=== PATIENT | female | born 2000 | race Caucasian/White ===

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

== ENCOUNTER 2020-01-11 14:35 | Emergency (ER) | payer OTHER ==
[~2020-01-11] VITALS: Ht 162.6 cm; Wt 46.4 kg
[2020-01-11] MEDS ORDERED: NS 1,000 ML IV ONE (15:30)
[2020-01-11 16:09] LABS: BASO # 0.1 10^3/uL (0.0-0.2); BASO % 0.7 % (0.0-1.0); EOS # 0.2 10^3/uL (0.0-0.5); EOS % 2.2 % (0.0-3.0); HEMATOCRIT 38.2 % (36.0-47.0); HEMOGLOBIN 12.4 g/dl (12.0-15.5); LYMPH # 1.4 10^3/uL (1.5-5.0); MEAN CORPUSCULAR HEMOGLOBIN 28.9 pg (27.0-33.0); MEAN CORPUSCULAR HGB CONC 32.5 g/dl (32.0-36.5); MONO # 0.5 10^3/uL (0.0-0.8); MONO % 6.9 % (0.0-5.0); NEUTROPHILS # 5.5 10^3/uL (1.5-8.5); NEUTROPHILS % 71.9 % (36.0-66.0); PLATELET COUNT, AUTOMATED 221 10^3/uL (150-450); RED BLOOD COUNT 4.29 10^6/uL (4.00-5.40); WHITE BLOOD COUNT 7.6 10^3/uL (4.0-10.0)
[2020-01-11] MEDS ORDERED: ACETAMINOPHEN 500 MG TAB PO ONE (16:15)
[2020-01-11] MEDS ORDERED: METOCLOPRAMIDE INJ 10MG/2ML VIAL (J2765 PER 1) IV ONE (16:15)
[2020-01-11 16:34] LABS: HCG, SERUM QUALITATIVE NEGATIVE (NEGATIVE)
[2020-01-11 16:36] LABS: ALBUMIN 3.6 GM/DL (3.2-5.2); ALT/SGPT 19 U/L (12-78); BILIRUBIN,DIRECT 0.1 MG/DL (0.0-0.2); BILIRUBIN,TOTAL 0.6 MG/DL (0.2-1.0); BLOOD UREA NITROGEN 17 MG/DL (7-18); CALCIUM LEVEL 8.8 MG/DL (8.5-10.1); CARBON DIOXIDE LEVEL 29 MEQ/L (21-32); CHLORIDE LEVEL 107 MEQ/L (98-107); CREATININE FOR GFR 0.76 MG/DL (0.55-1.30); GLUCOSE, FASTING 79 MG/DL (70-100); LIPASE 102 U/L (73-393); POTASSIUM SERUM 3.8 MEQ/L (3.5-5.1); SODIUM LEVEL 141 MEQ/L (136-145); TOTAL PROTEIN 6.5 GM/DL (6.4-8.2)
--- NOTE | 2020-01-11 17:02 | REP ---
INDICATION: severe migraine whole head x 2 weeks. COMPARISON: 12/23/2018, 08/16/2017 TECHNIQUE: CT BRAIN PERFORMED IN THE AXIAL PLANE. CORONAL RECONSTRUCTION IMAGES ARE PERFORMED. FINDINGS: THE VENTRICLES ARE NORMAL IN SIZE AND POSITION. THERE IS NO MIDLINE SHIFT OR MASS EFFECT. LICEA-WHITE DIFFERENTIATION IS WELL MAINTAINED. THERE IS NO ACUTE INTRACRANIAL HEMORRHAGE OR EXTRA-AXIAL FLUID COLLECTION. BONE WINDOW EXAMINATION IS UNREMARKABLE. VISUALIZED MASTOID AIR CELLS AND PARANASAL SINUSES ARE CLEAR. IMPRESSION: NEGATIVE NONCONTRAST CT BRAIN. <Electronically signed by Jose Luis Jacobs > 01/11/20 [id number]
[2020-01-11 18:00] VITALS: BP 111/63
--- NOTE | 2020-01-11 19:03 | ECGEPIP ---
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
== END 2020-01-11 18:10 | disposition home or self-care (01) ==
LOC: M ED 14:35
DX: R51.9 Headache, unspecified (principal); J45.909 Unspecified asthma, uncomplicated; F32.9 Major depressive disorder, single episode, unspecified; F17.210 Nicotine dependence, cigarettes, uncomplicated; Z88.0 Allergy status to penicillin; Z88.1 Allergy status to other antibiotic agents; Z88.8 Allergy status to other drugs, medicaments and biological substances; Z88.6 Allergy status to analgesic agent; Z87.828 Personal history of other (healed) physical injury and trauma
CPT/HCPCS: 70450; 80048; 80076; 83690; 84703; 85025; 93005; 96361; 96374; 99284; J2765

== ENCOUNTER → 2020-05-16 | Outpatient (REF) | payer OTHER ==
[~2020-05-16] MED LIST changes: -MONT5CHW; +MONT5CHW8
[2020-05-17 10:31] LABS: HEMATOCRIT 41.6 % (36.0-47.0); HEMOGLOBIN 13.1 g/dl (12.0-15.5); MEAN CORPUSCULAR HEMOGLOBIN 28.7 pg (27.0-33.0); MEAN CORPUSCULAR HGB CONC 31.5 g/dl (32.0-36.5); PLATELET COUNT, AUTOMATED 246 10^3/uL (150-450); RED BLOOD COUNT 4.57 10^6/uL (4.00-5.40); WHITE BLOOD COUNT 4.6 10^3/uL (4.0-10.0)
[2020-05-17 11:00] LABS: HEMOGLOBIN A1c 4.6 %
[2020-05-17 11:13] LABS: FREE T4 0.89 NG/DL (0.78-1.33)
[2020-05-17 11:14] LABS: PROLACTIN 18.4 NG/ML
[2020-05-17 11:18] LABS: HCG, SERUM QUALITATIVE NEGATIVE (NEGATIVE)
== END ==
LOC: M PLALAB 14:21
PROVIDERS: ATTEND Advanced Practice Midwife
DX: N92.1 Excessive and frequent menstruation with irregular cycle (principal); N91.2 Amenorrhea, unspecified; R31.0 Gross hematuria

== ENCOUNTER → 2020-05-22 | Outpatient (REF) | payer OTHER ==
[2020-05-22 15:43] LABS: APPEARANCE, URINE TURBID (CLEAR); BACTERIA, URINE AUTO 1+ (NEGATIVE); BILIRUBIN, URINE AUTO NEGATIVE (NEGATIVE); BLOOD, URINE BLOOD 3+ (NEGATIVE); COLOR, URINE YELLOW (YELLOW); GLUCOSE, URINE (UA) AUTO NEGATIVE (NEGATIVE); KETONE, URINE AUTO NEGATIVE (NEGATIVE); LEUKOCYTE ESTERASE, URINE AUTO 3+ (NEGATIVE); MUCUS, URINE SMALL (NEGATIVE); NITRITE, URINE AUTO NEGATIVE (NEGATIVE); PROTEIN, URINE AUTO 2+ mg/dL (NEGATIVE); RBC, URINE AUTO 125 /HPF (0-3); SPECIFIC GRAVITY URINE AUTO 1.019 (1.002-1.035); SQUAMOUS EPITHELIAL CELL UR AU 0 /HPF (0-6); UROBILINOGEN, URINE AUTO 0.2 mg/dL (0.0-2.0); WBC, URINE AUTO TNTC /HPF (0-3)
== END ==
LOC: M SFHCWAGY 15:24
PROVIDERS: ATTEND Advanced Practice Midwife
DX: N92.1 Excessive and frequent menstruation with irregular cycle (principal); R31.0 Gross hematuria

== ENCOUNTER → 2020-05-31 | Outpatient (CLI) | payer OTHER ==
--- NOTE | 2020-05-31 14:48 | REP ---
INDICATION: N92.1 MENORRHAGIA WITH IRREGULAR CYCLE. COMPARISON: 07/23/2017. TECHNIQUE: Multiple sonographic images of the pelvis with transabdominal and Doppler ultrasound evaluation. The patient declined endovaginal ultrasound. FINDINGS: The bladder is suboptimally distended containing only 28 mL of fluid. The uterus is retroverted and normal size measuring 8.0 x 4.5 x 5.7 cm. The endometrium is upper normal thickness measuring up to 14 mm. The right ovary measures 2.9 x 2.4 x 2.8 cm. The left ovary measures 3.1 x 2.2 x 3.1 cm. The ovaries are normal size. There is no dominant mass or cyst in either the right or the left ovary. There is vascular flow in the left ovary with the Doppler resistive index in the parenchymal arteries measuring 0.37. There is no Doppler assessment of the right ovary, the study is technically difficult. The entire examination is technically difficult because of a nondistended bladder, interfering bowel gas and no endovaginal imaging. IMPRESSION: Retroverted uterus. Endometrium upper normal thickness. Right and left ovaries normal size. No dominant ovarian masses or cysts. Vascular flow in the left ovary. No Doppler assessment of the right ovary could be performed because of technical difficulties with the study. <Electronically signed by Perry Joy > 05/31/20 [id number]
== END ==
LOC: M WHC 11:57
PROVIDERS: ATTEND Advanced Practice Midwife
DX: N92.1 Excessive and frequent menstruation with irregular cycle (principal); N85.4 Malposition of uterus

== ENCOUNTER → 2020-07-03 | Outpatient (REF) | payer OTHER | LOC: M SFHCWAGY 12:47 | PROVIDERS: ATTEND Advanced Practice Midwife | DX: R31.0 Gross hematuria (principal) ==

== ENCOUNTER → 2020-11-26 | Outpatient (REF) | payer OTHER ==
[~2020-11-26] MED LIST changes: -DOXY100C37 PO; +DOXY1CAP62 PO
[2020-11-26 19:09] LABS: APPEARANCE, URINE HAZY (CLEAR); BACTERIA, URINE AUTO 1+ (NEGATIVE); BILIRUBIN, URINE AUTO NEGATIVE (NEGATIVE); BLOOD, URINE BLOOD 2+ (NEGATIVE); COLOR, URINE YELLOW (YELLOW); GLUCOSE, URINE (UA) AUTO NEGATIVE (NEGATIVE); KETONE, URINE AUTO TRACE mg/dL (NEGATIVE); LEUKOCYTE ESTERASE, URINE AUTO 1+ (NEGATIVE); MUCUS, URINE SMALL (NEGATIVE); NITRITE, URINE AUTO NEGATIVE (NEGATIVE); PROTEIN, URINE AUTO 2+ mg/dL (NEGATIVE); RBC, URINE AUTO 31 /HPF (0-3); SQUAMOUS EPITHELIAL CELL UR AU 3 /HPF (0-6); TRANSITIONAL EPITHELIAL AUTO 2 /HPF; UROBILINOGEN, URINE AUTO 0.2 mg/dL (0.0-2.0); WBC, URINE AUTO 66 /HPF (0-3)
== END ==
LOC: M LAB REF 17:11
PROVIDERS: ATTEND Physician Assistant Medical
DX: R30.0 Dysuria (principal)

== ENCOUNTER 2021-02-04 10:00 | Emergency (ER) | payer OTHER ==
[~2021-02-04] VITALS: Ht 162.6 cm; Wt 43.1 kg
[2021-02-04 10:00] VITALS: BP 113/59
[~2021-02-04 10:00] MED LIST changes: +DOXY-443 PO; -DOXY1CAP62 PO
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
== END 2021-02-04 15:50 | disposition left against medical advice (07) ==
LOC: M ED 10:00
DX: Z53.29 Procedure and treatment not carried out because of patient's decision for other reasons (principal)

== ENCOUNTER → 2021-07-21 | Outpatient (CLI) | payer OTHER ==
[~2021-07-21] MED LIST changes: -AFRI0.058; -MONT5CHW8; +MONT5CHW9; +OXYM15SP2
== END ==
LOC: M WUC 14:39
PROVIDERS: ATTEND Nurse Practitioner Family
DX: J45.909 Unspecified asthma, uncomplicated (principal)

== ENCOUNTER → 2022-03-20 | Outpatient (CLI) | payer OTHER ==
[~2022-03-20] MED LIST changes: +ALBU2.5V10 NEB; -ALBU83IN NEB; +MONT5CHW10; -MONT5CHW9
== END ==
LOC: M PLALAB 15:54
PROVIDERS: ATTEND Specialist
DX: Z34.82 Encounter for supervision of other normal pregnancy, second trimester (principal); Z3A.00 Weeks of gestation of pregnancy not specified

== ENCOUNTER → 2022-05-07 | Outpatient (CLI) | payer OTHER | LOC: M WHC 14:54 | PROVIDERS: ATTEND Specialist | DX: Z34.82 Encounter for supervision of other normal pregnancy, second trimester (principal); Z3A.20 20 weeks gestation of pregnancy ==

== ENCOUNTER → 2022-05-08 | Outpatient (CLI) | payer OTHER ==
[2022-05-08 17:08] LABS: HEMATOCRIT 33.5 % (36.0-47.0); MEAN CORPUSCULAR HEMOGLOBIN 27.8 pg (27.0-33.0); MEAN CORPUSCULAR HGB CONC 32.8 g/dl (32.0-36.5); MEAN CORPUSCULAR VOLUME 84.8 fl (80.0-96.0); PLATELET COUNT, AUTOMATED 220 10^3/uL (150-450); RED BLOOD COUNT 3.95 10^6/uL (4.00-5.40); WHITE BLOOD COUNT 9.9 10^3/uL (4.0-10.0)
[2022-05-08 17:53] LABS: HIV 1&2 SCREEN CENTAUR NEGATIVE (NEGATIVE)
[2022-05-08 19:03] LABS: GC DNA AMPLIFICATION NEGATIVE (NEGATIVE)
== END ==
LOC: M PLALAB 16:11
PROVIDERS: ATTEND Obstetrics & Gynecology
DX: Z34.91 Encounter for supervision of normal pregnancy, unspecified, first trimester (principal)

== ENCOUNTER 2022-06-10 08:59 | Emergency (ER) | payer OTHER ==
[~2022-06-10] VITALS: Ht 162.6 cm; Wt 55.0 kg
[2022-06-10 08:59] VITALS: BP 115/63
[2022-06-10] MEDS ORDERED: PRENTAB9 PO (09:40)
[2022-06-16] MEDS ORDERED: ACET500P3 PO (08:13)
[2022-06-16] MEDS ORDERED: ACET-897 PO (08:22)
== END 2022-06-10 11:15 | disposition admitted as inpatient to this hospital (09) ==
LOC: M ED 08:59
DX: Z53.21 Procedure and treatment not carried out due to patient leaving prior to being seen by health care provider (principal)

== ENCOUNTER 2022-06-10 09:15 | Outpatient (CLI) | payer OTHER ==
[~2022-06-10] VITALS: Ht 162.6 cm; Wt 55.1 kg
[2022-06-10 09:32] VITALS: BP 118/64
[2022-06-10] MEDS ORDERED: PRENTAB9 PO (09:40)
[2022-06-10] MEDS ORDERED: HOME MED LIST COMPLETE! XX SCH (09:45)
[2022-06-10 10:43] LABS: HEMOGLOBIN 10.6 g/dl (12.0-15.5); MEAN CORPUSCULAR HEMOGLOBIN 27.8 pg (27.0-33.0); MEAN CORPUSCULAR HGB CONC 33.1 g/dl (32.0-36.5); PLATELET COUNT, AUTOMATED 218 10^3/uL (150-450); RED BLOOD COUNT 3.81 10^6/uL (4.00-5.40); WHITE BLOOD COUNT 9.7 10^3/uL (4.0-10.0)
[2022-06-10 11:07] LABS: ALBUMIN 2.5 G/DL (3.2-5.2); ALKALINE PHOSPHATASE 65 U/L (46-116); ALT/SGPT 23 U/L (7.0-40); AST/SGOT 24 U/L (<34); BILIRUBIN,TOTAL 0.5 MG/DL (0.3-1.2); BLOOD UREA NITROGEN 11 MG/DL (9-23); CALCIUM LEVEL 7.8 MG/DL (8.5-10.1); CARBON DIOXIDE LEVEL 23 MMOL/L (20-31); CHLORIDE LEVEL 109 MMOL/L (98-107); CREATININE FOR GFR 0.44 MG/DL (0.55-1.30); GLOMERULAR FILTRATION RATE > 60.0 (>60); GLUCOSE, FASTING 72 MG/DL (60-100); POTASSIUM SERUM 3.5 MMOL/L (3.5-5.1); SODIUM LEVEL 138 MMOL/L (136-145); TOTAL PROTEIN 5.3 G/DL (5.7-8.2)
[2022-06-10 11:18] VITALS: BP 114/59
[2022-06-10] MEDS ORDERED: ACETAMINOPHEN 500 MG TAB PO ONE (12:45)
[2022-06-16] MEDS ORDERED: ACET500P3 PO (08:13)
[2022-06-16] MEDS ORDERED: ACET-897 PO (08:22)
== END 2022-06-10 14:50 | disposition home or self-care (01) ==
LOC: M LDO 09:15
PROVIDERS: ATTEND Advanced Practice Midwife
DX: O26.892 Other specified pregnancy related conditions, second trimester (principal); R42 Dizziness and giddiness; R51.9 Headache, unspecified; Z3A.25 25 weeks gestation of pregnancy
CPT/HCPCS: 36415; 59025; 80053; 85027; G0463

== ENCOUNTER → 2022-06-12 | Outpatient (REF) | payer OTHER ==
[~2022-06-12] MED LIST changes: +ACET-897 PO; +ACET500P3 PO; +PRENTAB9 PO
[2022-06-12 20:59] LABS: GC DNA AMPLIFICATION NEGATIVE (NEGATIVE)
== END ==
LOC: M SFHCWAGY 16:50
PROVIDERS: ATTEND Obstetrics & Gynecology
DX: Z34.92 Encounter for supervision of normal pregnancy, unspecified, second trimester (principal)

== ENCOUNTER → 2022-06-19 | Outpatient (CLI) | payer OTHER | LOC: M PLALAB 11:20 | PROVIDERS: ATTEND Obstetrics & Gynecology | DX: Z34.92 Encounter for supervision of normal pregnancy, unspecified, second trimester (principal); Z3A.00 Weeks of gestation of pregnancy not specified ==

== ENCOUNTER 2022-07-26 12:23 | Emergency (ER) | payer OTHER ==
[~2022-07-26] VITALS: Ht 162.6 cm; Wt 85.3 kg
[2022-07-26] MEDS ORDERED: predniSONE 20 MG TAB PO ONE (15:20)
[2022-07-26] MEDS ORDERED: PRED10TA2 PO (15:48)
[2022-07-26 15:55] VITALS: BP 109/67
== END 2022-07-26 15:55 | disposition home or self-care (01) ==
LOC: M ED 12:23
DX: O99.513 Diseases of the respiratory system complicating pregnancy, third trimester (principal); Z3A.31 31 weeks gestation of pregnancy; J02.9 Acute pharyngitis, unspecified; J45.909 Unspecified asthma, uncomplicated; R51.9 Headache, unspecified; Z87.891 Personal history of nicotine dependence
CPT/HCPCS: 87880; 99283; J7512

== ENCOUNTER → 2022-08-21 | Outpatient (REF) | payer OTHER ==
[~2022-08-21] MED LIST changes: +PRED10TA2 PO
== END ==
LOC: M SFHCWAGY 13:07
PROVIDERS: ATTEND Specialist
DX: Z34.83 Encounter for supervision of other normal pregnancy, third trimester (principal)

== ENCOUNTER 2022-09-21 11:49 | Inpatient (IN) | payer OTHER ==
[~2022-09-21] VITALS: Ht 162.6 cm; Wt 62.6 kg
[2022-09-21] VITALS (23 sets, daily range): BP systolic 112–145; BP diastolic 61–92
[~2022-09-21 11:49] MED LIST changes: +* PENDING VANCOMYCIN ENTRY XX SCH
[2022-09-21] MEDS ORDERED: ACET325C5 PO (13:04)
[2022-09-21] MEDS ORDERED: PRENTAB9 PO (13:04)
[2022-09-21] MEDS ORDERED: ACET500P3 PO (13:04)
[2022-09-21] MEDS ORDERED: LACTATED RINGER'S 1000 ML IV STA (13:08)
[2022-09-21] MEDS ORDERED: METHYLERGONOVINE MALEATE 0.2MG/ML 1ML VIAL IM PRN (13:10)
[2022-09-21] MEDS ORDERED: OXYTOCIN INJ 10UNITS/ML 1ML VIAL IM PRN (13:10)
[2022-09-21] MEDS ORDERED: TRANEXAMIC ACID INJection 1,000 MG in NS 100 ML IV PRN (13:10)
[2022-09-21] MEDS ORDERED: VANCOMYCIN HCL 1,000 MG, VIAL MATE ADAPTER 1 EACH in NS 250 ML IV SCH (13:10)
[2022-09-21] MEDS ORDERED: CARBOPROST TROMETHAMINE 250 MCG/ML AMP IM PRN (13:10)
[2022-09-21] MEDS ORDERED: OXYTOCIN DRIP 30 UNITS in IV 1 EA IV PRN (13:10)
[2022-09-21] MEDS ORDERED: LIDOCAINE 1% MDV 20ML VIAL INFIL PRN (13:10)
[2022-09-21 13:12] LABS: HEMATOCRIT 34.6 % (36.0-47.0); HEMOGLOBIN 11.5 g/dl (12.0-15.5); MEAN CORPUSCULAR HEMOGLOBIN 27.2 pg (27.0-33.0); MEAN CORPUSCULAR HGB CONC 33.2 g/dl (32.0-36.5); MEAN CORPUSCULAR VOLUME 81.8 fl (80.0-96.0); PLATELET COUNT, AUTOMATED 183 10^3/uL (150-450); RED BLOOD COUNT 4.23 10^6/uL (4.00-5.40); WHITE BLOOD COUNT 8.7 10^3/uL (4.0-10.0)
[2022-09-21] MEDS: miSOPROStol 50MCG 1/2 TABLET PO SCH ×3 (14:49→23:00)
[2022-09-21] MEDS ORDERED: EPIDURAL/PCA KEYS XX PRN (22:40)
[2022-09-21] MEDS ORDERED: ONDANSETRON 4MG 2ML VIAL IV PRN (22:40)
[2022-09-21] MEDS ORDERED: FENTANYL/ROPIVACAINE/NACL BAG 100 ML EPIDURAL SCH (22:40)
[2022-09-21] MEDS ORDERED: NALOXONE INJ 0.4MG/1ML VIAL IV PRN (22:40)
[2022-09-21] MEDS ORDERED: LR 500 ML IV PRN (22:40)
[2022-09-21] MEDS ORDERED: diphenhydrAMINE 50MG/ML VIAL IV PRN (22:40)
[2022-09-21] MEDS ORDERED: ePHEDrine SULFATE 25 MG/5 ML(5MG/ML) SYRINGE IVP PRN (22:40)
[2022-09-21] MEDS ORDERED: VANCOMYCIN HCL 1,000 MG, VIAL MATE ADAPTER 1 EACH in D5W 250 ML IV SCH (23:00)
[2022-09-22] VITALS (19 sets, daily range): BP systolic 107–146; BP diastolic 58–89; O2SAT 96–97
[2022-09-22] MEDS: miSOPROStol 50MCG 1/2 TABLET PO SCH (03:00)
[2022-09-22] MEDS ORDERED: MOM 30ML SUSPENSION UDC PO PRN (08:30)
[2022-09-22] MEDS ORDERED: RHOGAM 300MCG (1500IU) INJ IM SCH (08:30)
[2022-09-22] MEDS ORDERED: DIBUCAINE 1% OINTMENT 30GM TOP PRN (08:30)
[2022-09-22] MEDS ORDERED: DOCUSATE SODIUM 100MG CAPSULE PO PRN (08:30)
[2022-09-22] MEDS ORDERED: ANUSOL HC CREAM 30GM TOP PRN (08:30)
[2022-09-22] MEDS ORDERED: METHYLERGONOVINE MALEATE 0.2 MG TAB PO PRN (08:30)
[2022-09-22] MEDS: PRENATAL VITAMINS CHEWABLE TABLET PO SCH (09:46)
[2022-09-22] MEDS: ACETAMINOPHEN 500 MG TAB PO PRN (09:46)
[2022-09-23] MEDS ORDERED: PILL CUTTER 1 EACH XX PRN (02:50)
[2022-09-23] MEDS: ACETAMINOPHEN 500 MG TAB PO PRN (03:34)
[2022-09-23 06:00] VITALS: BP 108/62; O2SAT 99
[2022-09-23] MEDS: PRENATAL VITAMINS CHEWABLE TABLET PO SCH (08:30)
[2022-09-23] MEDS: ACETAMINOPHEN TAB 650MG DOSE (2X325MG) PO PRN ×2 (11:50→19:22)
[2022-09-23 18:00] VITALS: BP 115/55; O2SAT 99
[2022-09-24] MEDS: ACETAMINOPHEN 500 MG TAB PO PRN (02:10)
[2022-09-24 06:00] VITALS: BP 109/60; O2SAT 96
[2022-09-24] MEDS ORDERED: MEASLES,MUMPS,RUBELLA VACCINE INJ (MMR-II) SC.IMMUN ONE (09:00)
== END 2022-09-24 12:10 | disposition home or self-care (01) | DRG 560 ==
LOC: M LDI 11:49 → EEVIPCON 11:49 → M OBS 09-22 06:19
PROVIDERS: ADMIT Advanced Practice Midwife; ATTEND Advanced Practice Midwife
PROC: 3E0P7GC Introduction of Other Therapeutic Substance into Female Reproductive, Via Natural or Artificial Opening (ICD-10-PCS; 2022-09-21)
PROC: 10E0XZZ Delivery of Products of Conception, External Approach (ICD-10-PCS; principal; 2022-09-22)
PROC: 0HQ9XZZ Repair Perineum Skin, External Approach (ICD-10-PCS; 2022-09-22)
DX: O99.52 Diseases of the respiratory system complicating childbirth (principal); J45.40 Moderate persistent asthma, uncomplicated; Z3A.40 40 weeks gestation of pregnancy; Z37.0 Single live birth; O70.0 First degree perineal laceration during delivery; O99.824 Streptococcus B carrier state complicating childbirth

== ENCOUNTER 2022-12-05 12:41 | Emergency (ER) | payer MEDICAID, OTHER ==
[~2022-12-05] VITALS: Ht 162.6 cm; Wt 51.3 kg
[~2022-12-05 12:41] MED LIST changes: -* PENDING VANCOMYCIN ENTRY XX SCH; +ACET325C5 PO
[2022-12-05 13:38] LABS: BASO # 0.1 10^3/uL (0.0-0.2); EOS # 0.2 10^3/uL (0.0-0.5); HEMOGLOBIN 13.1 g/dl (12.0-15.5); LYMPH # 1.6 10^3/uL (1.5-5.0); LYMPH % 29.7 % (24.0-44.0); MEAN CORPUSCULAR HEMOGLOBIN 27.7 pg (27.0-33.0); MEAN CORPUSCULAR HGB CONC 33.6 g/dl (32.0-36.5); MEAN CORPUSCULAR VOLUME 82.5 fl (80.0-96.0); MONO # 0.5 10^3/uL (0.0-0.8); MONO % 9.6 % (2.0-8.0); NEUTROPHILS # 2.9 10^3/uL (1.5-8.5); NEUTROPHILS % 55.3 % (36.0-66.0); PLATELET COUNT, AUTOMATED 263 10^3/uL (150-450); RED BLOOD COUNT 4.73 10^6/uL (4.00-5.40); WHITE BLOOD COUNT 5.2 10^3/uL (4.0-10.0)
[2022-12-05 14:15] LABS: BLOOD UREA NITROGEN 15 MG/DL (9-23); CARBON DIOXIDE LEVEL 24 MMOL/L (20-31); CHLORIDE LEVEL 110 MMOL/L (98-107); CREATININE FOR GFR 0.71 MG/DL (0.55-1.30); GLOMERULAR FILTRATION RATE > 60.0 (>60); GLUCOSE, FASTING 82 MG/DL (60-100); SODIUM LEVEL 142 MMOL/L (136-145)
[2022-12-05 14:54] LABS: HCG, SERUM QUANTITATIVE < 2.6 MIU/ML (<4.2)
[2022-12-05] MEDS ORDERED: NS 1,000 ML IV ONE (15:50)
[2022-12-05] MEDS ORDERED: ONDA4TAB6 PO (17:02)
[2022-12-05] MEDS ORDERED: ACET-716 PO (17:02)
[2022-12-05 17:28] VITALS: BP 103/63; TEMP 98.5; O2SAT 100
[2022-12-09] MEDS ORDERED: ALBU6.7H6 INH (11:16)
== END 2022-12-05 17:29 | disposition home or self-care (01) ==
LOC: M ED 12:41
DX: O72.2 Delayed and secondary postpartum hemorrhage (principal); D89.2 Hypergammaglobulinemia, unspecified; Z88.0 Allergy status to penicillin; Z88.6 Allergy status to analgesic agent; Z88.8 Allergy status to other drugs, medicaments and biological substances
CPT/HCPCS: 71045; 76830; 76856; 80048; 84702; 85025; 85379; 86850; 86900; 86901; 93005; 93976; 96360; 99284; S0191

== ENCOUNTER → 2023-02-15 | Outpatient (CLI) | payer MEDICAID, OTHER ==
[~2023-02-15] MED LIST changes: +ACET-716 PO; +ALBU6.7H6 INH; +MIDOTAB PO; +ONDA4TAB6 PO
== END ==
LOC: M RAD 13:31
PROVIDERS: ATTEND Obstetrics & Gynecology
DX: N93.9 Abnormal uterine and vaginal bleeding, unspecified (principal)

== ENCOUNTER → 2023-04-20 | Outpatient (CLI) | payer OTHER ==
[2023-04-20 13:34] LABS: HEMATOCRIT 41.8 % (36.0-47.0); HEMOGLOBIN 13.7 g/dl (12.0-15.5); MEAN CORPUSCULAR HEMOGLOBIN 27.7 pg (27.0-33.0); MEAN CORPUSCULAR HGB CONC 32.8 g/dl (32.0-36.5); MEAN CORPUSCULAR VOLUME 84.6 fl (80.0-96.0); PLATELET COUNT, AUTOMATED 239 10^3/uL (150-450); RED BLOOD COUNT 4.94 10^6/uL (4.00-5.40); WHITE BLOOD COUNT 4.8 10^3/uL (4.0-10.0)
[2023-04-20 13:44] LABS: HCG, SERUM QUANTITATIVE < 2.6 MIU/ML (<4.2)
[2023-04-20 13:49] LABS: FOLLICLE STIMULATING HORMONE 5.5 mIU/ML; LUTEINIZING HORMONE 6.2 mIU/ML; PROLACTIN 23.69 NG/ML; PROTHROMBIN TIME 12.9 SECONDS (12.5-14.5)
[2023-04-20 13:50] LABS: ESTRADIOL 44.1 PG/ML; FREE T4 0.92 NG/DL (0.89-1.76); PARTIAL THROMBOPLASTIN TIME 30.8 SECONDS (24.8-34.2)
== END ==
LOC: M PLALAB 09:58
PROVIDERS: ATTEND Obstetrics & Gynecology
DX: N93.9 Abnormal uterine and vaginal bleeding, unspecified (principal)

== ENCOUNTER → 2023-06-02 | Outpatient (REF) | payer OTHER | LOC: M PLALAB 14:00 | PROVIDERS: ATTEND Advanced Practice Midwife | DX: Z12.4 Encounter for screening for malignant neoplasm of cervix (principal); R87.618 Other abnormal cytological findings on specimens from cervix uteri ==

== ENCOUNTER → 2023-06-02 | Outpatient (CLI) | payer OTHER ==
[2023-06-02 18:19] LABS: ALBUMIN 3.9 G/DL (3.2-5.2); ALKALINE PHOSPHATASE 102 U/L (46-116); ALT/SGPT 16 U/L (7.0-40); AST/SGOT 15 U/L (<34); BILIRUBIN,TOTAL 0.5 MG/DL (0.3-1.2); BLOOD UREA NITROGEN 14 MG/DL (9-23); CALCIUM LEVEL 9.3 MG/DL (8.5-10.1); CARBON DIOXIDE LEVEL 28 MMOL/L (20-31); CHLORIDE LEVEL 106 MMOL/L (98-107); CREATININE FOR GFR 0.62 MG/DL (0.55-1.30); GLOMERULAR FILTRATION RATE > 60.0 (>60); GLUCOSE, FASTING 83 MG/DL (60-100); POTASSIUM SERUM 3.8 MMOL/L (3.5-5.1); SODIUM LEVEL 137 MMOL/L (136-145); TOTAL PROTEIN 6.8 G/DL (5.7-8.2)
== END ==
LOC: M PLALAB 15:50
PROVIDERS: ATTEND Advanced Practice Midwife
DX: Z01.419 Encounter for gynecological examination (general) (routine) without abnormal findings (principal); R23.3 Spontaneous ecchymoses

== ENCOUNTER → 2023-09-21 | Outpatient (CLI) | payer OTHER ==
[~2023-09-21] MED LIST changes: +DOXY-323 PO; -DOXY-443 PO; +FLUO-365; -FLUO20CA22; +ONDA-282 PO; -ONDA4TAB6 PO
[2023-09-21 10:37] LABS: BASO % 0.9 % (0.0-1.0); EOS # 0.3 10^3/uL (0.0-0.5); EOS % 7.9 % (0.0-3.0); HEMATOCRIT 40.9 % (36.0-47.0); HEMOGLOBIN 13.7 g/dl (12.0-15.5); LYMPH # 1.3 10^3/uL (1.5-5.0); LYMPH % 29.7 % (24.0-44.0); MEAN CORPUSCULAR HEMOGLOBIN 29.1 pg (27.0-33.0); MEAN CORPUSCULAR HGB CONC 33.5 g/dl (32.0-36.5); MEAN CORPUSCULAR VOLUME 86.8 fl (80.0-96.0); MONO # 0.4 10^3/uL (0.0-0.8); MONO % 9.3 % (2.0-8.0); NEUTROPHILS # 2.2 10^3/uL (1.5-8.5); PLATELET COUNT, AUTOMATED 226 10^3/uL (150-450); RED BLOOD COUNT 4.71 10^6/uL (4.00-5.40); WHITE BLOOD COUNT 4.3 10^3/uL (4.0-10.0)
[2023-09-21 10:41] LABS: COLLAGEN EPINEPHRINE 106 SECONDS (74-162)
[2023-09-21 10:42] LABS: C REACTIVE PROTEIN QUANTITATIV < 0.40 MG/DL (<1.0)
[2023-09-21 10:43] LABS: IMMUNOGLOBULIN A 202.6 MG/DL (40-350); IMMUNOGLOBULIN G 917 MG/DL (650-1600)
[2023-09-21 10:46] LABS: IMMUNOGLOBULIN E 20.2 IU/ML (0-378)
[2023-09-21 10:50] LABS: INR 1.07; PARTIAL THROMBOPLASTIN TIME 32.5 SECONDS (24.8-34.2); PROTHROMBIN TIME 13.6 SECONDS (12.5-14.5)
[2023-09-22 07:26] LABS: T P ELECTROPHORESIS SO 6.3 g/dL (6.1-8.1)
[2023-09-22 12:07] LABS: HEPATITIS B SURF AB QUANT 7 mIU/mL (> OR = 10)
== END ==
LOC: M PLALAB 09:13
PROVIDERS: ATTEND Internal Medicine Hematology
DX: R77.1 Abnormality of globulin (principal)

== ENCOUNTER → 2023-09-28 | Outpatient (CLI) | payer OTHER | LOC: M PLALAB 14:09 | PROVIDERS: ATTEND Internal Medicine Hematology | DX: R58 Hemorrhage, not elsewhere classified (principal) ==

== ENCOUNTER → 2023-10-30 | Outpatient (CLI) | payer OTHER | LOC: M LAB 11:29 | PROVIDERS: ATTEND Physician Assistant | DX: Z34.00 Encounter for supervision of normal first pregnancy, unspecified trimester (principal) ==

== ENCOUNTER → 2023-11-02 | Outpatient (CLI) | payer OTHER ==
[2023-11-02 12:40] LABS: INR 1.1; PARTIAL THROMBOPLASTIN TIME 33.4 SECONDS (24.8-34.2); PROTHROMBIN TIME 13.9 SECONDS (12.5-14.5)
[2023-11-04 15:33] LABS: FACTOR VIII ACTIVITY 69 % normal (50-180)
[2023-11-04 17:13] LABS: FACTOR VIII AG (VON WILLEBRAN) 77 % (50-217)
== END ==
LOC: M PLALAB 10:23
PROVIDERS: ATTEND Internal Medicine Hematology
DX: D66 Hereditary factor VIII deficiency (principal)

== ENCOUNTER → 2023-11-10 | Outpatient (REF) | payer OTHER ==
[2023-11-11 15:00] LABS: BASO # 0.1 10^3/uL (0.0-0.2); EOS # 0.3 10^3/uL (0.0-0.5); EOS % 5.8 % (0.0-3.0); HEMATOCRIT 43.6 % (36.0-47.0); HEMOGLOBIN 14.4 g/dl (12.0-15.5); LYMPH # 1.8 10^3/uL (1.5-5.0); LYMPH % 30.8 % (24.0-44.0); MEAN CORPUSCULAR HEMOGLOBIN 28.9 pg (27.0-33.0); MEAN CORPUSCULAR VOLUME 87.6 fl (80.0-96.0); MONO # 0.5 10^3/uL (0.0-0.8); MONO % 8.6 % (2.0-8.0); NEUTROPHILS % 51.7 % (36.0-66.0); PLATELET COUNT, AUTOMATED 241 10^3/uL (150-450); RED BLOOD COUNT 4.98 10^6/uL (4.00-5.40); WHITE BLOOD COUNT 5.8 10^3/uL (4.0-10.0)
[2023-11-11 15:29] LABS: LIPASE 38 U/L (12-53)
[2023-11-11 15:31] LABS: ALBUMIN 4.2 G/DL (3.2-5.2); ALKALINE PHOSPHATASE 94 U/L (46-116); ALT/SGPT 13 U/L (7.0-40); AST/SGOT 14 U/L (<34); BILIRUBIN,TOTAL 0.6 MG/DL (0.3-1.2); BLOOD UREA NITROGEN 14 MG/DL (9-23); CALCIUM LEVEL 9.6 MG/DL (8.5-10.1); CARBON DIOXIDE LEVEL 30 MMOL/L (20-31); CHLORIDE LEVEL 106 MMOL/L (98-107); CREATININE FOR GFR 0.57 MG/DL (0.55-1.30); GLOMERULAR FILTRATION RATE > 60.0 (>60); GLUCOSE, FASTING 69 MG/DL (60-100); POTASSIUM SERUM 5.8 MMOL/L (3.5-5.1); SODIUM LEVEL 140 MMOL/L (136-145); THYROID STIMULATING HORMONE 1.295 uIU/ML (0.55-4.78); TOTAL PROTEIN 7.1 G/DL (5.7-8.2)
[2023-11-11 15:50] LABS: HCG, SERUM QUALITATIVE NEGATIVE (NEGATIVE)
[2023-11-11 17:37] LABS: HEMOGLOBIN A1c 4.6 % (4.0-6.0)
== END ==
LOC: M LAB REF 16:27
PROVIDERS: ATTEND Physician Assistant
DX: R35.89 Other polyuria (principal); R11.0 Nausea; R10.13 Epigastric pain; R53.83 Other fatigue

== ENCOUNTER → 2023-11-11 | Outpatient (REF) | payer OTHER | LOC: M LAB REF 10:01 | PROVIDERS: ATTEND Physician Assistant | DX: R53.83 Other fatigue (principal); Z53.9 Procedure and treatment not carried out, unspecified reason ==

== ENCOUNTER → 2023-11-15 | Outpatient (CLI) | payer OTHER ==
[2023-11-15 12:53] LABS: INR 1.12; PARTIAL THROMBOPLASTIN TIME 33.5 SECONDS (24.8-34.2); PROTHROMBIN TIME 14.1 SECONDS (12.5-14.5)
== END ==
LOC: M PLALAB 10:13
PROVIDERS: ATTEND Internal Medicine Hematology
DX: R79.1 Abnormal coagulation profile (principal)

== ENCOUNTER → 2023-11-16 | Outpatient (CLI) | payer OTHER ==
[2023-11-16 19:45] LABS: BLOOD UREA NITROGEN 17 MG/DL (9-23); CALCIUM LEVEL 8.9 MG/DL (8.5-10.1); CARBON DIOXIDE LEVEL 27 MMOL/L (20-31); CHLORIDE LEVEL 108 MMOL/L (98-107); CREATININE FOR GFR 0.59 MG/DL (0.55-1.30); GLOMERULAR FILTRATION RATE > 60.0 (>60); GLUCOSE, FASTING 72 MG/DL (60-100); POTASSIUM SERUM 4.4 MMOL/L (3.5-5.1); SODIUM LEVEL 140 MMOL/L (136-145)
== END ==
LOC: M RAD 09:47
PROVIDERS: ATTEND Physician Assistant
DX: M54.6 Pain in thoracic spine (principal); E87.5 Hyperkalemia

== ENCOUNTER → 2023-11-24 | Outpatient (CLI) | payer OTHER | LOC: M RAD 08:19 | PROVIDERS: ATTEND Physician Assistant | DX: M53.3 Sacrococcygeal disorders, not elsewhere classified (principal) ==

== ENCOUNTER → 2023-12-03 | Outpatient (CLI) | payer OTHER ==
[~2023-12-03] MED LIST changes: -DOXY-323 PO; +DOXY-441 PO
[2023-12-03 13:52] LABS: HEMOGLOBIN A1c 4.5 % (4.0-6.0)
[2023-12-03 14:04] LABS: PROLACTIN 21.28 NG/ML; THYROID STIMULATING HORMONE 1.085 uIU/ML (0.55-4.78)
[2023-12-03 14:05] LABS: FREE T4 1.03 NG/DL (0.89-1.76)
[2023-12-05 01:47] LABS: DEHYDROEPIANDROSTERONE SULFATE 113 mcg/dL (14-349)
== END ==
LOC: M PLALAB 09:24
PROVIDERS: ATTEND Advanced Practice Midwife
DX: N64.52 Nipple discharge (principal); N92.6 Irregular menstruation, unspecified

== ENCOUNTER → 2023-12-28 | Outpatient (CLI) | payer OTHER | LOC: M RAD 07:37 | PROVIDERS: ATTEND Physician Assistant | DX: M54.59 Other low back pain (principal) ==

== ENCOUNTER → 2024-01-26 | Outpatient (CLI) | payer OTHER ==
[~2024-01-26] MED LIST changes: -CYCL5TAB PO; +CYCL5TAB4 PO
== END ==
LOC: M PLALAB 09:06
PROVIDERS: ATTEND Advanced Practice Midwife
DX: N96 Recurrent pregnancy loss (principal)

== ENCOUNTER → 2024-01-31 | Outpatient (CLI) | payer OTHER | LOC: M PLALAB 11:34 | PROVIDERS: ATTEND Advanced Practice Midwife | DX: N96 Recurrent pregnancy loss (principal) ==

== ENCOUNTER → 2024-02-02 | Outpatient (CLI) | payer OTHER | LOC: M PLALAB 10:35 | PROVIDERS: ATTEND Advanced Practice Midwife | DX: N96 Recurrent pregnancy loss (principal) ==

== ENCOUNTER → 2024-03-16 | Outpatient (CLI) | payer OTHER ==
[2024-03-16 18:01] LABS: HEMATOCRIT 35.8 % (36.0-47.0); HEMOGLOBIN 12.1 g/dl (12.0-15.5); MEAN CORPUSCULAR HEMOGLOBIN 28.9 pg (27.0-33.0); MEAN CORPUSCULAR HGB CONC 33.8 g/dl (32.0-36.5); MEAN CORPUSCULAR VOLUME 85.4 fl (80.0-96.0); PLATELET COUNT, AUTOMATED 223 10^3/uL (150-450); RED BLOOD COUNT 4.19 10^6/uL (4.00-5.40); WHITE BLOOD COUNT 8.4 10^3/uL (4.0-10.0)
[2024-03-16 18:52] LABS: GC DNA AMPLIFICATION NEGATIVE (NEGATIVE)
[2024-03-16 19:07] LABS: HIV 1&2 SCREEN NEGATIVE (NEGATIVE)
[2024-03-16 19:14] LABS: HEPATITIS C VIRUS ABY INDEX < 0.02 INDEX (<0.8)
== END ==
LOC: M PLALAB 14:10
PROVIDERS: ATTEND Advanced Practice Midwife
DX: Z34.80 Encounter for supervision of other normal pregnancy, unspecified trimester (principal)

== ENCOUNTER → 2024-04-06 | Outpatient (CLI) | payer OTHER ==
[~2024-04-06] MED LIST changes: +CLIN-250
[2024-04-06 15:24] LABS: BASO % 0.3 % (0.0-1.0); EOS # 0.1 10^3/uL (0.0-0.5); EOS % 1.2 % (0.0-3.0); HEMATOCRIT 35.2 % (36.0-47.0); HEMOGLOBIN 12.1 g/dl (12.0-15.5); LYMPH # 1.2 10^3/uL (1.5-5.0); LYMPH % 13.4 % (24.0-44.0); MEAN CORPUSCULAR HEMOGLOBIN 28.9 pg (27.0-33.0); MEAN CORPUSCULAR HGB CONC 34.4 g/dl (32.0-36.5); MONO # 0.7 10^3/uL (0.0-0.8); MONO % 8.1 % (2.0-8.0); NEUTROPHILS % 76.6 % (36.0-66.0); PLATELET COUNT, AUTOMATED 216 10^3/uL (150-450); RED BLOOD COUNT 4.19 10^6/uL (4.00-5.40); WHITE BLOOD COUNT 9.2 10^3/uL (4.0-10.0)
[2024-04-06 15:26] LABS: ALBUMIN 2.9 G/DL (3.2-5.2); ALKALINE PHOSPHATASE 72 U/L (35-104); ALT/SGPT < 9 U/L (7.0-40); AST/SGOT 11 U/L (<34); BILIRUBIN,TOTAL 0.3 MG/DL (0.3-1.2); BLOOD UREA NITROGEN 12 MG/DL (9-23); CALCIUM LEVEL 8.4 MG/DL (8.5-10.1); CARBON DIOXIDE LEVEL 22 MMOL/L (20-31); CHLORIDE LEVEL 106 MMOL/L (98-107); GLOMERULAR FILTRATION RATE > 60.0 (>60); GLUCOSE, FASTING 78 MG/DL (60-100); POTASSIUM SERUM 3.8 MMOL/L (3.5-5.1); SODIUM LEVEL 139 MMOL/L (136-145); TOTAL PROTEIN 6.3 G/DL (5.7-8.2)
[2024-04-06 15:31] LABS: THYROID STIMULATING HORMONE 1.383 uIU/ML (0.55-4.78)
[2024-04-06 15:37] LABS: ERYTHROCYTE SEDIMENTATION RATE 14 mm/hr (0-20)
[2024-04-06 17:35] LABS: RHEUMATOID FACTOR QUANT 8.8 IU/ML (<14)
[2024-04-07 15:23] LABS: ANA SCREEN, IFA NEGATIVE (NEGATIVE)
== END ==
LOC: M PLALAB 13:33
PROVIDERS: ATTEND Psychiatry & Neurology Neurology
DX: R51.9 Headache, unspecified (principal)

== ENCOUNTER 2024-04-07 18:26 | Emergency (ER) | payer OTHER ==
[~2024-04-07] VITALS: Ht 162.6 cm; Wt 52.7 kg
[~2024-04-07 18:26] MED LIST changes: -CLIN-250
[2024-04-07 18:30] VITALS: BP 120/60; TEMP 97.8; O2SAT 98
[2024-04-07] MEDS ORDERED: CLIN-250 (18:36)
[2024-04-07] MEDS ORDERED: LIDOCAINE 1% MDV 20ML VIAL As Ordered ONE (21:50)
[2024-04-07] MEDS: LIDOCAINE 1% MDV 20ML VIAL SC ONE (21:51)
== END 2024-04-07 23:52 | disposition home or self-care (01) ==
LOC: M ED 18:26
DX: L05.01 Pilonidal cyst with abscess (principal); F41.9 Anxiety disorder, unspecified; F32.A Depression, unspecified; Z88.0 Allergy status to penicillin; Z88.1 Allergy status to other antibiotic agents; Z88.6 Allergy status to analgesic agent; Z88.8 Allergy status to other drugs, medicaments and biological substances; Z79.1 Long term (current) use of non-steroidal anti-inflammatories (NSAID); Z79.51 Long term (current) use of inhaled steroids; Z79.2 Long term (current) use of antibiotics; Z79.899 Other long term (current) drug therapy

== ENCOUNTER → 2024-04-07 | Outpatient (CLI) | payer OTHER | LOC: M RAD 11:22 | PROVIDERS: ATTEND Physician Assistant | DX: L05.01 Pilonidal cyst with abscess (principal) ==

== ENCOUNTER → 2024-04-19 | Outpatient (CLI) | payer OTHER ==
[~2024-04-19] MED LIST changes: +CLIN-250
== END ==
LOC: M PLALAB 15:25
PROVIDERS: ATTEND Advanced Practice Midwife
DX: O99.519 Diseases of the respiratory system complicating pregnancy, unspecified trimester (principal)

== ENCOUNTER → 2024-04-28 | Outpatient (CLI) | payer OTHER ==
[2024-04-28 15:23] LABS: PERCENT SATURATION 37.3 % (13.2-45.0)
[2024-04-28 15:26] LABS: FERRITIN 35.6 NG/ML (7.3-270.7)
== END ==
LOC: M PLALAB 13:03
PROVIDERS: ATTEND Physician Assistant
DX: E61.1 Iron deficiency (principal)

== ENCOUNTER → 2024-05-02 | Outpatient (CLI) | payer OTHER | LOC: M WHC 12:48 | PROVIDERS: ATTEND Advanced Practice Midwife | DX: O99.519 Diseases of the respiratory system complicating pregnancy, unspecified trimester (principal) ==

== ENCOUNTER → 2024-05-16 | Outpatient (REF) | payer OTHER | LOC: M SFHCWAGY 16:50 | PROVIDERS: ATTEND Obstetrics & Gynecology | DX: Z34.92 Encounter for supervision of normal pregnancy, unspecified, second trimester (principal) ==

== ENCOUNTER → 2024-06-07 | Outpatient (REF) | payer OTHER ==
[2024-06-07 18:35] LABS: MAGNESIUM LEVEL 1.8 MG/DL (1.8-2.4)
[2024-06-07 18:37] LABS: BASO # 0.1 10^3/uL (0.0-0.2); BASO % 0.5 % (0.0-1.0); EOS # 0.1 10^3/uL (0.0-0.5); EOS % 1.4 % (0.0-3.0); HEMATOCRIT 34.1 % (36.0-47.0); HEMOGLOBIN 11.3 g/dl (12.0-15.5); LYMPH # 1.6 10^3/uL (1.5-5.0); LYMPH % 16.2 % (24.0-44.0); MEAN CORPUSCULAR HEMOGLOBIN 28.5 pg (27.0-33.0); MEAN CORPUSCULAR HGB CONC 33.1 g/dl (32.0-36.5); MEAN CORPUSCULAR VOLUME 86.1 fl (80.0-96.0); MONO # 0.5 10^3/uL (0.0-0.8); MONO % 5.2 % (2.0-8.0); NEUTROPHILS # 7.6 10^3/uL (1.5-8.5); NEUTROPHILS % 75.8 % (36.0-66.0); PLATELET COUNT, AUTOMATED 223 10^3/uL (150-450); RED BLOOD COUNT 3.96 10^6/uL (4.00-5.40)
[2024-06-07 18:39] LABS: FREE T4 0.92 NG/DL (0.89-1.76); THYROID STIMULATING HORMONE 1.568 uIU/ML (0.55-4.78)
[2024-06-07 18:48] LABS: HEMOGLOBIN A1c 4.4 % (4.0-6.0)
== END ==
LOC: M LAB REF 17:51
PROVIDERS: ATTEND Physician Assistant
DX: R53.81 Other malaise (principal)

== ENCOUNTER → 2024-06-13 | Outpatient (CLI) | payer OTHER ==
[2024-06-13 15:47] LABS: GLUCOSE CHALLENGE TEST 1 HOUR 122 MG/DL (LESS THAN 140)
[2024-06-13 15:51] LABS: HEMATOCRIT 34.5 % (36.0-47.0); HEMOGLOBIN 11.4 g/dl (12.0-15.5); MEAN CORPUSCULAR HEMOGLOBIN 28.5 pg (27.0-33.0); MEAN CORPUSCULAR VOLUME 86.3 fl (80.0-96.0); PLATELET COUNT, AUTOMATED 211 10^3/uL (150-450); WHITE BLOOD COUNT 9.6 10^3/uL (4.0-10.0)
[2024-06-13 16:23] LABS: HIV 1&2 SCREEN NEGATIVE (NEGATIVE)
[2024-06-13 16:31] LABS: HEPATITIS C VIRUS ABY INDEX 0.03 INDEX (<0.8)
[2024-06-13 16:52] LABS: Trichomonas vaginalis (AMP) NOT DETECTED (NEGATIVE)
[2024-06-13 17:16] LABS: GC DNA AMPLIFICATION NEGATIVE (NEGATIVE)
== END ==
LOC: M PLALAB 10:52
PROVIDERS: ATTEND Specialist
DX: Z34.82 Encounter for supervision of other normal pregnancy, second trimester (principal)

== ENCOUNTER → 2024-06-21 | Outpatient (REF) | payer OTHER | LOC: M LAB REF 14:21 | PROVIDERS: ATTEND Physician Assistant | DX: L05.01 Pilonidal cyst with abscess (principal) ==

== ENCOUNTER 2024-09-12 10:48 | Outpatient (CLI) | payer MEDICAID, OTHER ==
[~2024-09-12] VITALS: Ht 162.6 cm; Wt 62.8 kg
[~2024-09-12 10:48] MED LIST changes: +TOPI-256 PO; -TOPI25TA10 PO
[2024-09-12 11:07] VITALS: BP 123/69
== END 2024-09-12 12:57 | disposition home or self-care (01) ==
LOC: M LDO 10:48
PROVIDERS: ATTEND Obstetrics & Gynecology
DX: O47.1 False labor at or after 37 completed weeks of gestation (principal); Z3A.38 38 weeks gestation of pregnancy
CPT/HCPCS: 59025; G0463

== ENCOUNTER 2024-09-14 07:29 | Inpatient (IN) | payer MEDICAID, OTHER ==
[2024-09-14] VITALS (64 sets, daily range): BP systolic 92–143; BP diastolic 50–79
[~2024-09-14] VITALS: Ht 162.6 cm; Wt 62.6 kg
[2024-09-14] MEDS ORDERED: PENICILLIN G POTASSIUM 5 MU IV 5 MU in DEXTROSE 5% (D5W) MINI-BAG PLU 100 ML IV STA (07:40)
[2024-09-14] MEDS ORDERED: OXYTOCIN DRIP 30 UNITS in IV 1 EA IV SCH (07:40)
[2024-09-14] MEDS ORDERED: OXYTOCIN INJ 10UNITS/ML 1ML VIAL IM PRN (07:40)
[2024-09-14] MEDS ORDERED: OXYTOCIN DRIP 30 UNITS in IV 1 EA IV PRN ×3 (07:40)
[2024-09-14] MEDS ORDERED: CARBOPROST TROMETHAMINE 250 MCG/ML AMP IM PRN (07:40)
[2024-09-14] MEDS ORDERED: METHYLERGONOVINE MALEATE 0.2 MG/ML 1 ML VIAL IM PRN (07:40)
[2024-09-14] MEDS ORDERED: LR 1,000 ML IV SCH ×2 (07:40→14:40)
[2024-09-14] MEDS ORDERED: TRANEXAMIC ACID INJection 1,000 MG in NS 100 ML IV PRN (07:40)
[2024-09-14] MEDS ORDERED: OXYTOCIN INJ 10UNITS/ML 1ML VIAL IV PRN (07:40)
[2024-09-14] MEDS ORDERED: LIDOCAINE 1% MDV 20 ML VIAL INFIL PRN (07:40)
[2024-09-14] MEDS ORDERED: CLINDAMYCIN 900 MG in IV 1 EA IV SCH (07:50)
[2024-09-14] MEDS ORDERED: ACET-897 PO (07:56)
[2024-09-14 08:37] LABS: PLATELET COUNT, AUTOMATED 235 10^3/uL (150-450)
[2024-09-14] MEDS: LR 1,000 ML IV SCH (09:16)
[2024-09-14] MEDS: miSOPROStol 50 MCG 1/2 TABLET PO PRN (09:29)
[2024-09-14 09:54] LABS: HIV 1&2 SCREEN NEGATIVE (NEGATIVE)
[2024-09-14 10:02] LABS: HEPATITIS C VIRUS ABY INDEX < 0.02 INDEX (<0.8)
[2024-09-14] MEDS: CLINDAMYCIN 900 MG in IV 1 EA IV SCH (10:31)
[2024-09-14] MEDS: OXYTOCIN DRIP 30 UNITS in IV 1 EA IV SCH (14:50)
[2024-09-14] MEDS: LACTATED RINGER'S 1000 ML IV STA (16:39)
[2024-09-14] MEDS ORDERED: diphenhydrAMINE 50 MG/ML VIAL IV PRN (16:50)
[2024-09-14] MEDS ORDERED: NALOXONE INJ 0.4 MG/1 ML VIAL IV PRN (16:50)
[2024-09-14] MEDS ORDERED: EPIDURAL/PCA KEYS XX PRN (16:50)
[2024-09-14] MEDS ORDERED: LR 500 ML IV PRN (16:50)
[2024-09-14] MEDS ORDERED: FENTANYL 2 MCG/ML ROPIVACAINE 0.2% IN 0.9% NACL 100 ML IVBAG As Ordered ONE (16:52)
[2024-09-14] MEDS: FENTANYL/ROPIVACAINE/NACL BAG 100 ML EPIDURAL SCH (17:27)
[2024-09-14] MEDS: ONDANSETRON 4MG 2ML VIAL IV PRN (20:37)
[2024-09-14 22:27] LABS: CORD GAS ABE A -6.5; CORD GAS HCO3 A 19.1 MMOL/L; CORD GAS O2 SAT A 96.5 %; CORD GAS PCO2 A 38.9 mmHg; CORD GAS PH A 7.31 UNITS; CORD GAS PO2 A 80.5 mmHg; CORD GAS SBC A 19.2 MMOL/L; CORD GAS TCO2 A 20.3 MMOL/L
[2024-09-14 22:30] LABS: CORD GAS ABE V -4.9; CORD GAS HCO3 V 19.2 MMOL/L; CORD GAS O2 SAT V 91.5 %; CORD GAS PCO2 V 33.0 mmHg; CORD GAS PH V 7.382 UNITS; CORD GAS PO2 V 59.1 mmHg; CORD GAS SBC V 20.3 MMOL/L; CORD GAS TCO2 V 20.2 MMOL/L
[2024-09-14] MEDS ORDERED: ACETAMINOPHEN 500 MG TAB PO PRN (23:00)
[2024-09-14] MEDS ORDERED: DOCUSATE SODIUM 100 MG CAPSULE PO PRN (23:00)
[2024-09-14] MEDS ORDERED: ANUSOL HC CREAM 30 GM TOP PRN (23:00)
[2024-09-14] MEDS ORDERED: MOM 30 ML SUSPENSION UDC PO PRN (23:00)
[2024-09-14] MEDS ORDERED: RHOGAM 300MCG (1500IU) INJ IM SCH (23:00)
[2024-09-14] MEDS ORDERED: IBUPROFEN 800 MG TAB PO PRN (23:00)
[2024-09-15 00:40] VITALS: BP 98/52; O2SAT 98
[2024-09-15 06:00] VITALS: BP 108/54; O2SAT 96
[2024-09-15] MEDS: PRENATAL VITAMINS CHEWABLE TABLET PO SCH (08:29)
[2024-09-15 18:00] VITALS: BP 99/78; O2SAT 98
[2024-09-15] MEDS: DIBUCAINE 1% OINTMENT 30 GM TOP PRN (20:41)
[2024-09-16 06:23] VITALS: BP 107/57; O2SAT 98
[2024-09-16] MEDS ORDERED: MEASLES,MUMPS,RUBELLA VACCINE INJ (MMR-II) SC.IMMUN ONE (09:00)
== END 2024-09-16 13:14 | disposition home or self-care (01) | DRG 560 ==
LOC: M LDI 07:29 → M OBS 09-15 00:15
PROVIDERS: ADMIT Obstetrics & Gynecology; ATTEND Obstetrics & Gynecology
PROC: 10E0XZZ Delivery of Products of Conception, External Approach (ICD-10-PCS; principal; 2024-09-14)
PROC: 0KQM0ZZ Repair Perineum Muscle, Open Approach (ICD-10-PCS; 2024-09-14)
PROC: 10907ZC Drainage of Amniotic Fluid, Therapeutic from Products of Conception, Via Natural or Artificial Opening (ICD-10-PCS; 2024-09-14)
PROC: 3E033VJ Introduction of Other Hormone into Peripheral Vein, Percutaneous Approach (ICD-10-PCS; 2024-09-14)
DX: O36.5933 Maternal care for other known or suspected poor fetal growth, third trimester, fetus 3 (principal); O99.824 Streptococcus B carrier state complicating childbirth; Z3A.38 38 weeks gestation of pregnancy; Z88.0 Allergy status to penicillin; Z88.6 Allergy status to analgesic agent; Z88.8 Allergy status to other drugs, medicaments and biological substances; Z88.1 Allergy status to other antibiotic agents; O70.1 Second degree perineal laceration during delivery; Z37.0 Single live birth

== ENCOUNTER → 2025-01-15 | Outpatient (CLI) | payer OTHER | LOC: M SOG 10:16 | PROVIDERS: ATTEND Orthopaedic Surgery | DX: M25.562 Pain in left knee (principal); M25.552 Pain in left hip ==